=== PATIENT | male | born 1995 | race Caucasian/White ===

== ENCOUNTER 2018-11-17 14:18 | Outpatient (CLI) | payer BC | END 2018-11-17 14:19 | disposition home or self-care (01) | LOC: CONVCARE 14:18 | PROVIDERS: ATTEND Orthopaedic Surgery | DX: M25.551 Pain in right hip (principal); W11.XXXA Fall on and from ladder, initial encounter; S72.091A Other fracture of head and neck of right femur, initial encounter for closed fracture | CPT/HCPCS: 73502 ==

== ENCOUNTER 2018-12-22 10:38 | Outpatient (CLI) | payer BC | END 2018-12-22 10:39 | disposition home or self-care (01) | LOC: CONVCARE 10:38 | PROVIDERS: ATTEND Orthopaedic Surgery | DX: S72.001D Fracture of unspecified part of neck of right femur, subsequent encounter for closed fracture with routine healing (principal); Z98.890 Other specified postprocedural states | CPT/HCPCS: 73501 ==

== ENCOUNTER 2019-01-19 11:14 | Outpatient (CLI) | payer BC | END 2019-01-19 11:15 | disposition home or self-care (01) | LOC: RAD 11:14 | PROVIDERS: ATTEND Orthopaedic Surgery | DX: S72.001D Fracture of unspecified part of neck of right femur, subsequent encounter for closed fracture with routine healing (principal) | CPT/HCPCS: 73501 ==

== ENCOUNTER 2019-02-16 11:14 | Outpatient (CLI) | payer BC | END 2019-02-16 11:15 | disposition home or self-care (01) | LOC: RAD 11:14 | PROVIDERS: ATTEND Orthopaedic Surgery | DX: S72.001D Fracture of unspecified part of neck of right femur, subsequent encounter for closed fracture with routine healing (principal); Z98.890 Other specified postprocedural states | CPT/HCPCS: 73501 ==